=== PATIENT | female | born 1965 | race Two or more races ===

== ENCOUNTER 2016-07-15 23:46 | Emergency (ER) | payer SELFPAY ==
[2016-07-16] MEDS ORDERED: AMOXICILLIN TRIHYDRATE 250 MG CAPSULE ONE (02:27)
[2016-07-16] MEDS ORDERED: HYDROCODONE/ACETAMINOPHEN 5/325MG TABLET ONE (02:28)
== END 2016-07-16 02:35 | disposition home or self-care (01) ==
LOC: ED 23:46
DX: L03.211 Cellulitis of face (principal)
CPT/HCPCS: 99283 ×2; A9270 ×2